=== PATIENT | male | born 1995 | race African-American/Black ===

== ENCOUNTER 2019-03-23 14:50 | Inpatient (IN) ==
[2019-03-23] MEDS ORDERED: SODIUM CHLORIDE 0.9% 1,000 ML IV STA ×2 (16:00→17:25)
[2019-03-23] MEDS ORDERED: INSULIN REGULAR 100 UNIT/ML IV ONE (16:00)
[2019-03-23 16:17] LABS: Basophils % 0.5 % (0.0-0.8); Hematocrit 47.3 VOL% (42.0-52.0); Hemoglobin 14.9 GM/DL (14.0-18.0); Immature Granulocytes % 0.3 %; Immature Granulocytes Absolute 0.01 #; Lymphocytes # 0.5 10*3/uL (1.4-4.0); Lymphocytes % 12.3 % (21.2-54.2); Mean Corpuscular HGB Conc 31.5 GM/DL (32-36); Mean Corpuscular Volume 81.8 FL (87-102); Mean Platelet Volume 11.7 FL (9.6-12.0); Neutrophils % 81.9 % (38.7-73.9); Platelet Count 178 T/CUMM (130-400); Red Blood Count 5.78 MC/CUMM (3.8-5.5); Red Cell Distribution Width 15.5 % (9.3-17.3)
[2019-03-23 16:30] LABS: Albumin 4.4 G/DL (3.4-5.0); Bilirubin,Total 0.4 MG/DL (0.2-1.0); Calcium 10.2 MG/DL (8.5-10.1); Osmolality,Calculated 294.5 MOS/KG (273-304); Thyroid Stimulating Hormone 1.69 uIU/ml (0.358-3.74); Total Protein 9.7 G/DL (6.4-8.3)
[2019-03-23] MEDS ORDERED: GLUCAGON 1 MG VIAL IM PRN (18:47)
[2019-03-23] MEDS ORDERED: SODIUM PHOSPHATE IV PRN (18:47)
[2019-03-23] MEDS ORDERED: MAGNESIUM SULF RIDER 4 GM in PREMIX 1 EACH IV PRN (18:47)
[2019-03-23] MEDS ORDERED: DEXTROSE 50% 25 GM/50 ML VIAL IV PRN ×3 (18:47)
[2019-03-23] MEDS ORDERED: SODIUM BICARB INJ 100 MEQ in STERILE WATER INJ 400 ML IV PRN (18:47)
[2019-03-23] MEDS ORDERED: SODIUM CHLORIDE 0.9% 1,000 ML IV ONE (18:47)
[2019-03-23] MEDS ORDERED: SODIUM CHLORIDE 0.9% IV PRN (18:47)
[2019-03-23] MEDS ORDERED: INSULIN REGULAR DRIP 100 ML IV SCH (19:00)
[2019-03-23 19:28] LABS: Allen Test Positive; Pt O2 Delivery Device Room Air
[2019-03-23 19:29] LABS: ABG Base Excess -15.3 MMOL/L (-2.5-2.5); ABG Oxygen Saturation 97.9 % (95-100); ABG PCO2 23.4 MM HG (35-48); ABG TCO2 9.4 MMOL/L (23-27)
[2019-03-23] MEDS: ENOXAPARIN 40 MG/0.4 ML SYRINGE SUBCUT SCH (19:50)
[2019-03-23] MEDS: SODIUM CHLORIDE 0.9% 1,000 ML IV SCH (21:17)
[2019-03-23 23:21] LABS: Apearance,Urine CLEAR (Clear); Bilirubin,Urine Negative (Negative); Blood, Urine Small mg/dL (Negative); Glucose,Urine (UA) >=500 mg/dL (Negative); Hyaline Casts,Urine 1 /LPF (0-3); Ketones,Urine 80 mg/dL (Negative); Mucus,Urine Occasional /LPF (Occasional); Nitrite,Urine Negative (Negative); Protein,Urine Negative; RBC,Urine <1 /HPF (0-4); Urine Color Straw (Yellow); Urine Specific Gravity 1.022 (1.001-1.035); Urine Urobilinogen < 2.0 EU/DL (0.2-1.0); WBC,Urine 1 /HPF (0-6)
[2019-03-23] MEDS ORDERED: SODIUM CHLORIDE 0.9% 1,000 ML IV SCH (23:48)
[2019-03-24] MEDS: SODIUM CHLORIDE 0.9% 1,000 ML IV SCH (00:52)
[2019-03-24 01:17] LABS: Calcium 8.1 MG/DL (8.5-10.1); Osmolality,Calculated 281.5 MOS/KG (273-304)
[2019-03-24] MEDS: POTASSIUM CHLORIDE RIDER 10 MEQ in PREMIX 1 EACH IV PRN (02:02)
[2019-03-24] MEDS ORDERED: DEXTROSE 5% NACL 0.9% 1,000 ML IV SCH (02:30)
[2019-03-24 03:46] LABS: Basophils % 0.9 % (0.0-0.8); Eosinophils % 1.2 % (0.00-10.9); Hematocrit 33.1 VOL% (42.0-52.0); Hemoglobin 10.4 GM/DL (14.0-18.0); Immature Granulocytes % 0.3 %; Immature Granulocytes Absolute 0.01 #; Lymphocytes # 1.3 10*3/uL (1.4-4.0); Lymphocytes % 38.8 % (21.2-54.2); Mean Corpuscular HGB Conc 31.4 GM/DL (32-36); Mean Corpuscular Volume 82.1 FL (87-102); Mean Platelet Volume 11.2 FL (9.6-12.0); Monocytes % 7.3 % (1.7-12.7); Neutrophils % 51.5 % (38.7-73.9); Platelet Count 137 T/CUMM (130-400); Red Blood Count 4.03 MC/CUMM (3.8-5.5); Red Cell Distribution Width 15.7 % (9.3-17.3); White Blood Count 3.4 T/CUMM (4-12)
[2019-03-24 04:05] LABS: Calcium 8.2 MG/DL (8.5-10.1); Osmolality,Calculated 285.3 MOS/KG (273-304)
[2019-03-24] MEDS ORDERED: SODIUM CHLOR 0.45% KCL 20 MEQ 20 MEQ/1,000 ML BAG IV SCH (05:00)
[2019-03-24] MEDS: MAGNESIUM SULF RIDER 2 GM in PREMIX 1 EACH IV PRN ×2 (05:50→13:05)
[2019-03-24 07:54] LABS: Calcium 8.3 MG/DL (8.5-10.1); Osmolality,Calculated 280.4 MOS/KG (273-304)
[2019-03-24] MEDS: SODIUM CHLORIDE 0.45% 1,000 ML IV SCH ×3 (08:00→18:37)
[2019-03-24] MEDS: POTASSIUM CHLORIDE 20 MEQ TABLET PO SCH ×3 (09:01→15:56)
[2019-03-24] MEDS ORDERED: INSULIN NPH 100 UNIT/ML SUBCUT ONE (10:40)
[2019-03-24] MEDS: INSULIN NPH 100 UNIT/ML SUBCUT SCH ×2 (10:41→15:56)
[2019-03-24] MEDS: INSULIN LISPRO 100 UNIT/ML SUBCUT SCH ×5 (10:58→22:59)
[2019-03-24] MEDS ORDERED: INSULIN LISPRO 100 UNIT/ML SUBCUT SCH (11:30)
[2019-03-24] MEDS: ENOXAPARIN 40 MG/0.4 ML SYRINGE SUBCUT SCH (18:36)
[2019-03-25] MEDS: SODIUM CHLORIDE 0.45% 1,000 ML IV SCH (01:37)
[2019-03-25] MEDS: INSULIN LISPRO 100 UNIT/ML SUBCUT SCH ×9 (02:36→20:51)
[2019-03-25 04:59] LABS: Basophils % 0.4 % (0.0-0.8); Eosinophils % 1.1 % (0.00-10.9); Hematocrit 33.4 VOL% (42.0-52.0); Hemoglobin 11.1 GM/DL (14.0-18.0); Immature Granulocytes % 0.4 %; Immature Granulocytes Absolute 0.01 #; Lymphocytes # 0.7 10*3/uL (1.4-4.0); Lymphocytes % 24.4 % (21.2-54.2); Mean Corpuscular HGB Conc 33.2 GM/DL (32-36); Mean Corpuscular Volume 78.4 FL (87-102); Monocytes % 8.6 % (1.7-12.7); Neutrophils % 65.1 % (38.7-73.9); Platelet Count 110 T/CUMM (130-400); Red Blood Count 4.26 MC/CUMM (3.8-5.5); Red Cell Distribution Width 15.7 % (9.3-17.3); White Blood Count 2.8 T/CUMM (4-12)
[2019-03-25 05:25] LABS: Calcium 8.5 MG/DL (8.5-10.1); Osmolality,Calculated 279.3 MOS/KG (273-304)
[2019-03-25] MEDS: POTASSIUM CHLORIDE RIDER 10 MEQ in PREMIX 1 EACH IV PRN ×2 (06:45→07:44)
[2019-03-25] MEDS: MAGNESIUM SULF RIDER 2 GM in PREMIX 1 EACH IV PRN (07:05)
[2019-03-25] MEDS: INSULIN NPH 100 UNIT/ML SUBCUT SCH ×2 (07:34→15:53)
[2019-03-25] MEDS ORDERED: MAGNESIUM SULF RIDER 2 GM in PREMIX 1 EACH IV ONE (08:31)
[2019-03-25] MEDS: POTASSIUM CHLORIDE 20 MEQ TABLET PO SCH ×4 (08:45→20:34)
[2019-03-25] MEDS ORDERED: INSULIN LISPRO 100 UNIT/ML SUBCUT SCH (12:00)
[2019-03-25] MEDS: ENOXAPARIN 40 MG/0.4 ML SYRINGE SUBCUT SCH (18:05)
[2019-03-26 05:34] LABS: Calcium 8.6 MG/DL (8.5-10.1); Osmolality,Calculated 277.7 MOS/KG (273-304)
[2019-03-26] MEDS ORDERED: LEVOTHYROXINE 200 MCG TABLET PO SCH (06:30)
[2019-03-26] MEDS: POTASSIUM CHLORIDE RIDER 10 MEQ in PREMIX 1 EACH IV PRN ×2 (09:25→10:33)
[2019-03-26] MEDS: INSULIN LISPRO 100 UNIT/ML SUBCUT SCH ×4 (09:26→11:39)
[2019-03-26] MEDS: INSULIN NPH 100 UNIT/ML SUBCUT SCH (09:26)
[2019-03-26] MEDS ORDERED: INSULIN NPH 100 UNIT/ML SUBCUT SCH ×2 (10:30→16:30)
[2019-03-26] MEDS ORDERED: INSULIN REGULAR 100 UNIT/ML SUBCUT SCH (11:30)
[2019-03-26 11:52] VITALS: BP 116/82
[2019-03-26] MEDS ORDERED: ENOXAPARIN 40 MG/0.4 ML SYRINGE SUBCUT SCH (21:00)
[2019-03-30 07:31] LABS: GAD65 Ab Assay, S 0.09 nmol/L (<= 0.02)
== END 2019-03-26 12:35 | disposition home or self-care (01) | DRG 639 ==
LOC: N.ED 14:50 → N.ICU 18:23 → SUATTDRO 18:23 → N.ICU 19:30 → N.4E 03-25 16:54
PROVIDERS: ADMIT Internal Medicine; ATTEND Family Medicine

== ENCOUNTER 2019-04-10 21:59 | Observation (INO) ==
[2019-04-10] MEDS ORDERED: ONDANSETRON 4 MG/2 ML VIAL IV ONE (22:43)
[2019-04-10] MEDS ORDERED: SODIUM CHLORIDE 0.9% 1,000 ML IV STA (22:43)
[2019-04-10 22:57] LABS: ABG Base Excess -24.3 MMOL/L (-2.5-2.5); ABG HCO3 8.6 MMOL/L (20-26); ABG Oxygen Saturation 97.8 % (95-100); ABG TCO2 4.3 MMOL/L (23-27); Allen Test Positive; Pt O2 Delivery Device Other
[2019-04-10 23:00] LABS: ABG PH 7.132 (7.35-7.45)
[2019-04-10 23:05] LABS: Alanine Aminotransferase 24 U/L (16-61); Albumin 4.7 G/DL (3.4-5.0); Alkaline Phosphatase 138 U/L (45-117); Aspartate Amino Transferase 12 U/L (0-37); Blood Urea Nitrogen 14 MG/DL (7-18); Calcium 11.1 MG/DL (8.5-10.1); Osmolality,Calculated 300.7 MOS/KG (273-304); Total Protein 10.9 G/DL (6.4-8.3)
[2019-04-10 23:11] LABS: Glucose 551 MG/DL (74-106)
[2019-04-10] MEDS ORDERED: INSULIN REGULAR 100 UNIT/ML IV STA (23:12)
[2019-04-10] MEDS ORDERED: INSULIN REGULAR DRIP 100 ML IV PRN (23:18)
[2019-04-10 23:20] LABS: Basophils % 0.3 % (0.0-0.8); Hematocrit 55.5 VOL% (42.0-52.0); Hemoglobin 16.8 GM/DL (14.0-18.0); Immature Granulocytes % 0.7 %; Immature Granulocytes Absolute 0.07 #; Lymphocytes # 0.6 10*3/uL (1.4-4.0); Lymphocytes % 6.6 % (21.2-54.2); Mean Corpuscular HGB Conc 30.3 GM/DL (32-36); Mean Corpuscular Volume 85.1 FL (87-102); Mean Platelet Volume 11.8 FL (9.6-12.0); Monocytes % 2.6 % (1.7-12.7); Neutrophils % 89.8 % (38.7-73.9); Platelet Count 254 T/CUMM (130-400); Red Blood Count 6.52 MC/CUMM (3.8-5.5); Red Cell Distribution Width 18.7 % (9.3-17.3); White Blood Count 9.8 T/CUMM (4-12)
[2019-04-10 23:35] LABS: Apearance,Urine CLEAR (Clear); Bilirubin,Urine Negative (Negative); Blood, Urine Moderate mg/dL (Negative); Glucose,Urine (UA) >=500 mg/dL (Negative); Hyaline Casts,Urine 13 /LPF (0-3); Ketones,Urine 80 mg/dL (Negative); Mucus,Urine Occasional /LPF (Occasional); Nitrite,Urine Negative (Negative); Protein,Urine >=500 MG/DL; RBC,Urine 1 /HPF (0-4); Urine Color Yellow (Yellow); Urine Specific Gravity 1.025 (1.001-1.035); Urine Urobilinogen < 2.0 EU/DL (0.2-1.0); WBC,Urine <1 /HPF (0-6)
[2019-04-11] MEDS ORDERED: ONDANSETRON 4 MG/2 ML VIAL IV PRN (01:13)
[2019-04-11] MEDS ORDERED: ACETAMINOPHEN 325 MG TABLET PO PRN (01:13)
[2019-04-11] MEDS: SODIUM CHLORIDE 0.45% 1,000 ML IV SCH ×2 (01:58→06:18)
[2019-04-11 03:52] LABS: Calcium 9.5 MG/DL (8.5-10.1); Osmolality,Calculated 298.8 MOS/KG (273-304)
[2019-04-11 05:03] LABS: Basophils % 0.2 % (0.0-0.8); Eosinophils % 0.1 % (0.00-10.9); Hematocrit 47.3 VOL% (42.0-52.0); Immature Granulocytes % 0.7 %; Immature Granulocytes Absolute 0.11 #; Lymphocytes # 1.4 10*3/uL (1.4-4.0); Lymphocytes % 9.1 % (21.2-54.2); Mean Corpuscular HGB Conc 30.9 GM/DL (32-36); Mean Corpuscular Volume 83.7 FL (87-102); Mean Platelet Volume 12.8 FL (9.6-12.0); Monocytes % 2.9 % (1.7-12.7); Red Blood Count 5.65 MC/CUMM (3.8-5.5); Red Cell Distribution Width 17.6 % (9.3-17.3)
[2019-04-11 05:11] LABS: Hemoglobin 14.6 GM/DL (14.0-18.0); Platelet Count 153 T/CUMM (130-400); White Blood Count 15.1 T/CUMM (4-12)
[2019-04-11 07:23] LABS: ABG PCO2 14.4 MM HG (35-48)
[2019-04-11] MEDS: ENOXAPARIN 40 MG/0.4 ML SYRINGE SUBCUT SCH (09:13)
[2019-04-11 10:14] LABS: Calcium 9.5 MG/DL (8.5-10.1); Osmolality,Calculated 282.8 MOS/KG (273-304)
[2019-04-11] MEDS ORDERED: GLUCAGON 1 MG VIAL IM PRN (10:39)
[2019-04-11] MEDS ORDERED: DEXTROSE 50% 25 GM/50 ML VIAL IV PRN (10:39)
[2019-04-11] MEDS: LACTATED RINGERS 1,000 ML IV SCH ×3 (10:56→22:21)
[2019-04-11] MEDS: INSULIN REGULAR 100 UNIT/ML SUBCUT SCH ×2 (11:17→18:48)
[2019-04-11] MEDS: INSULIN NPH 100 UNIT/ML SUBCUT SCH ×2 (11:17→16:55)
[2019-04-11] MEDS: POTASSIUM CHLORIDE 20 MEQ TABLET PO SCH ×3 (11:17→20:56)
[2019-04-11] MEDS: FAMOTIDINE 20 MG/2 ML VIAL IV SCH ×2 (11:17→22:23)
[2019-04-11] MEDS: LEVOTHYROXINE 200 MCG TABLET PO SCH (15:12)
[2019-04-11] MEDS ORDERED: POTASSIUM CHLORIDE 20 MEQ TABLET PO SCH (21:00)
[2019-04-12] MEDS: INSULIN REGULAR 100 UNIT/ML SUBCUT SCH ×4 (00:24→17:33)
[2019-04-12] MEDS: LACTATED RINGERS 1,000 ML IV SCH ×4 (03:04→23:33)
[2019-04-12 06:01] LABS: Calcium 8.8 MG/DL (8.5-10.1); Osmolality,Calculated 286.5 MOS/KG (273-304)
[2019-04-12] MEDS: LEVOTHYROXINE 200 MCG TABLET PO SCH (07:08)
[2019-04-12] MEDS ORDERED: MAGNESIUM SULF RIDER 2 GM in PREMIX 1 EACH IV PRN (07:14)
[2019-04-12] MEDS ORDERED: MAGNESIUM SULF RIDER 4 GM in PREMIX 1 EACH IV PRN (07:14)
[2019-04-12] MEDS: INSULIN NPH 100 UNIT/ML SUBCUT SCH ×3 (09:23→17:33)
[2019-04-12] MEDS: ENOXAPARIN 40 MG/0.4 ML SYRINGE SUBCUT SCH (09:23)
[2019-04-12] MEDS: FAMOTIDINE 20 MG/2 ML VIAL IV SCH ×2 (09:24→21:34)
[2019-04-12] MEDS ORDERED: INSULIN NPH 100 UNIT/ML SUBCUT SCH ×3 (10:30→18:28)
[2019-04-12] MEDS: GABAPENTIN 100 MG CAPSULE PO SCH (20:43)
[2019-04-13] MEDS: INSULIN REGULAR 100 UNIT/ML SUBCUT SCH ×6 (03:40→18:13)
[2019-04-13] MEDS: LACTATED RINGERS 1,000 ML IV SCH ×5 (03:42→22:42)
[2019-04-13 05:22] LABS: Calcium 8.4 MG/DL (8.5-10.1)
[2019-04-13] MEDS: LEVOTHYROXINE 200 MCG TABLET PO SCH (06:49)
[2019-04-13] MEDS ORDERED: POTASSIUM CHLORIDE INJ 50 MEQ in SODIUM CHLORIDE 0.9% 500 ML IV ONE (09:00)
[2019-04-13] MEDS: INSULIN NPH 100 UNIT/ML SUBCUT SCH (09:01)
[2019-04-13] MEDS: FAMOTIDINE 20 MG/2 ML VIAL IV SCH ×2 (09:02→22:05)
[2019-04-13] MEDS: ENOXAPARIN 40 MG/0.4 ML SYRINGE SUBCUT SCH (09:02)
[2019-04-13] MEDS: GABAPENTIN 100 MG CAPSULE PO SCH ×2 (09:02→20:08)
[2019-04-14] MEDS: INSULIN REGULAR 100 UNIT/ML SUBCUT SCH ×3 (02:55→08:13)
[2019-04-14 05:48] LABS: Calcium 8.6 MG/DL (8.5-10.1); Osmolality,Calculated 282.1 MOS/KG (273-304)
[2019-04-14] MEDS: LACTATED RINGERS 1,000 ML IV SCH (05:55)
[2019-04-14] MEDS: LEVOTHYROXINE 200 MCG TABLET PO SCH (06:03)
[2019-04-14] MEDS: INSULIN NPH 100 UNIT/ML SUBCUT SCH (08:11)
[2019-04-14] MEDS: ENOXAPARIN 40 MG/0.4 ML SYRINGE SUBCUT SCH (08:14)
[2019-04-14] MEDS: FAMOTIDINE 20 MG/2 ML VIAL IV SCH (08:17)
[2019-04-14] MEDS: GABAPENTIN 100 MG CAPSULE PO SCH (08:20)
[2019-04-14 08:51] VITALS: BP 116/75
[2019-04-14] MEDS ORDERED: POTASSIUM CHLORIDE 20 MEQ TABLET PO ONE (09:30)
== END 2019-04-14 11:03 | disposition home or self-care (01) ==
LOC: N.ED 21:59 → N.EDINP 21:59 → SUATTDRO 04-11 01:13 → N.CC 04-11 08:06 → N.2E 04-11 11:53
PROVIDERS: ADMIT Internal Medicine; ATTEND Internal Medicine

== ENCOUNTER 2019-04-20 12:36 | Inpatient (IN) ==
[2019-04-20] MEDS ORDERED: ONDANSETRON 4 MG/2 ML VIAL IV STA (13:36)
[2019-04-20] MEDS ORDERED: SODIUM CHLORIDE 0.9% 1,000 ML IV STA ×2 (13:36→14:50)
[2019-04-20] MEDS ORDERED: INSULIN REGULAR 100 UNIT/ML IV ONE ×2 (13:52→15:48)
[2019-04-20 14:20] LABS: Basophils # 0.1 10*3/uL (0.0-0.2); Basophils % 0.3 % (0.0-0.8); Hematocrit 47.5 VOL% (42.0-52.0); Hemoglobin 14.5 GM/DL (14.0-18.0); Immature Granulocytes % 1.8 %; Immature Granulocytes Absolute 0.33 #; Lymphocytes % 5.5 % (21.2-54.2); Mean Corpuscular HGB Conc 30.5 GM/DL (32-36); Mean Corpuscular Volume 86.5 FL (87-102); Mean Platelet Volume 10.8 FL (9.6-12.0); Monocytes % 5.3 % (1.7-12.7); Neutrophils % 87.1 % (38.7-73.9); Platelet Count 407 T/CUMM (130-400); Red Blood Count 5.49 MC/CUMM (3.8-5.5); Red Cell Distribution Width 17.9 % (9.3-17.3); White Blood Count 18.6 T/CUMM (4-12)
[2019-04-20 14:21] LABS: Albumin 4.1 G/DL (3.4-5.0); Bilirubin,Total 0.4 MG/DL (0.2-1.0); Calcium 9.8 MG/DL (8.5-10.1); Osmolality,Calculated 295.8 MOS/KG (273-304); Total Protein 9.8 G/DL (6.4-8.3)
[2019-04-20] MEDS ORDERED: MAGNESIUM SULF RIDER 4 GM in PREMIX 1 EACH IV PRN (15:48)
[2019-04-20] MEDS ORDERED: SODIUM CHLORIDE 0.9% IV PRN (15:48)
[2019-04-20] MEDS ORDERED: SODIUM CHLORIDE 0.9% 1,000 ML IV ONE (15:48)
[2019-04-20] MEDS ORDERED: PANTOPRAZOLE 40 MG VIAL IV SCH (15:48)
[2019-04-20] MEDS ORDERED: ONDANSETRON 4 MG/2 ML VIAL IV PRN (15:48)
[2019-04-20] MEDS ORDERED: SODIUM BICARB INJ 100 MEQ in STERILE WATER INJ 400 ML IV PRN (15:48)
[2019-04-20] MEDS ORDERED: MAGNESIUM SULF RIDER 2 GM in PREMIX 1 EACH IV PRN (15:48)
[2019-04-20] MEDS ORDERED: SODIUM PHOSPHATE IV PRN (15:48)
[2019-04-20] MEDS ORDERED: DEXTROSE 50% 25 GM/50 ML VIAL IV PRN ×2 (15:48)
[2019-04-20 16:16] LABS: Pt O2 Delivery Device Room Air
[2019-04-20 16:23] LABS: ABG Base Excess -28.3 MMOL/L (-2.5-2.5); ABG HCO3 1.3 MMOL/L (20-26); ABG Oxygen Saturation 98.7 % (95-100); ABG PO2 187.6 MM HG (80-95); ABG TCO2 1.5 MMOL/L (23-27)
[2019-04-20 16:32] LABS: ABG PH 6.977 (7.35-7.45)
[2019-04-20 16:33] LABS: ABG PCO2 5.8 MM HG (35-48)
[2019-04-20] MEDS ORDERED: POTASSIUM CHLORIDE IV PRN (17:06)
[2019-04-20] MEDS ORDERED: STERILE WATER IV PRN (17:06)
[2019-04-20] MEDS ORDERED: SODIUM BICARB IV PRN (17:06)
[2019-04-20 17:12] LABS: Calcium 8.7 MG/DL (8.5-10.1); Osmolality,Calculated 292.2 MOS/KG (273-304)
[2019-04-20 17:13] LABS: Basophils # 0.1 10*3/uL (0.0-0.2); Basophils % 0.4 % (0.0-0.8); Hematocrit 43.7 VOL% (42.0-52.0); Hemoglobin 13.2 GM/DL (14.0-18.0); Immature Granulocytes % 1.9 %; Lymphocytes # 1.3 10*3/uL (1.4-4.0); Mean Corpuscular HGB Conc 30.2 GM/DL (32-36); Mean Corpuscular Volume 87.6 FL (87-102); Mean Platelet Volume 10.8 FL (9.6-12.0); Monocytes % 7.4 % (1.7-12.7); Neutrophils % 84.3 % (38.7-73.9); Platelet Count 365 T/CUMM (130-400); Red Blood Count 4.99 MC/CUMM (3.8-5.5); Red Cell Distribution Width 17.8 % (9.3-17.3); White Blood Count 21.2 T/CUMM (4-12)
[2019-04-20] MEDS: INSULIN REGULAR DRIP 100 ML IV SCH (17:17)
[2019-04-20 17:19] LABS: Thyroid Stimulating Hormone 0.616 uIU/ml (0.358-3.74)
[2019-04-20 17:26] LABS: Lymphocytes 5 % (20-55); Platelet Estimate Adequate; Segmented Neutrophils 90 % (50-85); Total Cells Counted 100
[2019-04-20] MEDS: ENOXAPARIN 40 MG/0.4 ML SYRINGE SUBCUT SCH (17:34)
[2019-04-20] MEDS: SODIUM CHLORIDE 0.9% 1,000 ML IV SCH ×2 (18:34→19:45)
[2019-04-20 18:45] LABS: Pt O2 Delivery Device Room Air
[2019-04-20 18:47] LABS: ABG Base Excess -29.2 MMOL/L (-2.5-2.5); ABG HCO3 1.6 MMOL/L (20-26); ABG Oxygen Saturation 98.4 % (95-100); ABG PO2 163.3 MM HG (80-95); ABG TCO2 1.8 MMOL/L (23-27)
[2019-04-20 18:50] LABS: ABG PH 6.927 (7.35-7.45)
[2019-04-20 18:51] LABS: ABG PCO2 7.7 MM HG (35-48)
[2019-04-20] MEDS ORDERED: SODIUM CHLORIDE 0.9% 1,000 ML IV SCH (19:48)
[2019-04-20 19:54] LABS: Apearance,Urine CLEAR (Clear); Bacteria,Urine Occasional /HPF (Few); Bilirubin,Urine Negative (Negative); Blood, Urine Moderate mg/dL (Negative); Glucose,Urine (UA) >=500 mg/dL (Negative); Ketones,Urine 80 mg/dL (Negative); Mucus,Urine Occasional /LPF (Occasional); Nitrite,Urine Negative (Negative); Protein,Urine Negative; RBC,Urine 1 /HPF (0-4); Urine Color Straw (Yellow); Urine Specific Gravity 1.011 (1.001-1.035); Urine Urobilinogen < 2.0 EU/DL (0.2-1.0); WBC,Urine <1 /HPF (0-6)
[2019-04-20 20:30] LABS: Calcium 7.4 MG/DL (8.5-10.1); Osmolality,Calculated 289.8 MOS/KG (273-304)
[2019-04-20 20:53] LABS: ABG Base Excess -25.7 MMOL/L (-2.5-2.5); ABG HCO3 2.6 MMOL/L (20-26); ABG Oxygen Saturation 98.5 % (95-100); ABG PO2 142.6 MM HG (80-95); ABG TCO2 2.9 MMOL/L (23-27); Allen Test Positive; Pt O2 Delivery Device Room Air
[2019-04-20 20:57] LABS: ABG PCO2 9.7 MM HG (35-48); ABG PH 7.051 (7.35-7.45)
[2019-04-20 21:38] LABS: Barbiturates Screen,Urine Negative (Negative); Benzodiazepines Screen,Urine Negative (Negative); Cannabinoid Screen,Urine Negative (Negative); Opiate Screen,Urine Negative (Negative); Phencyclidine Screen,Urine Negative (Negative)
[2019-04-20] MEDS: GABAPENTIN 100 MG CAPSULE PO SCH (22:17)
[2019-04-20 22:55] LABS: ABG Base Excess -26.8 MMOL/L (-2.5-2.5); ABG HCO3 6.6 MMOL/L (20-26); ABG Oxygen Saturation 98.6 % (95-100); Allen Test Positive; Pt O2 Delivery Device Room Air
[2019-04-20 22:59] LABS: ABG PH 7.067 (7.35-7.45)
[2019-04-20 23:07] LABS: Calcium 7.7 MG/DL (8.5-10.1); Osmolality,Calculated 289.8 MOS/KG (273-304)
[2019-04-21 01:13] LABS: ABG Base Excess -25.3 MMOL/L (-2.5-2.5); ABG HCO3 7.3 MMOL/L (20-26); ABG Oxygen Saturation 98.8 % (95-100); ABG TCO2 3.5 MMOL/L (23-27); Allen Test Positive; Pt O2 Delivery Device Room Air
[2019-04-21 01:15] LABS: ABG PH 7.113 (7.35-7.45)
[2019-04-21 01:16] LABS: ABG PCO2 11.8 MM HG (35-48)
[2019-04-21] MEDS ORDERED: DEXTROSE 5% NACL 0.9% 1,000 ML IV SCH (03:00)
[2019-04-21 03:58] LABS: Basophils % 0.2 % (0.0-0.8); Eosinophils % 0.2 % (0.00-10.9); Hematocrit 35.8 VOL% (42.0-52.0); Hemoglobin 10.9 GM/DL (14.0-18.0); Immature Granulocytes % 1.7 %; Immature Granulocytes Absolute 0.21 #; Lymphocytes # 1.6 10*3/uL (1.4-4.0); Lymphocytes % 12.3 % (21.2-54.2); Mean Corpuscular HGB Conc 30.4 GM/DL (32-36); Mean Corpuscular Volume 85.6 FL (87-102); Mean Platelet Volume 11.5 FL (9.6-12.0); Monocytes % 7.9 % (1.7-12.7); Neutrophils % 77.7 % (38.7-73.9); Platelet Count 194 T/CUMM (130-400); Red Blood Count 4.18 MC/CUMM (3.8-5.5); Red Cell Distribution Width 17.8 % (9.3-17.3); White Blood Count 12.6 T/CUMM (4-12)
[2019-04-21 04:45] LABS: Risk Ratio 6.93
[2019-04-21 04:47] LABS: Osmolality,Calculated 278.7 MOS/KG (273-304)
[2019-04-21] MEDS ORDERED: SODIUM CHLOR 0.45% KCL 20 MEQ 20 MEQ/1,000 ML BAG IV SCH (05:00)
[2019-04-21] MEDS ORDERED: DEXT 5% NACL 0.45% KCL 20 MEQ 20 MEQ/1,000 ML BAG IV SCH (06:00)
[2019-04-21] MEDS: LEVOTHYROXINE 200 MCG TABLET PO SCH (06:24)
[2019-04-21] MEDS ORDERED: SODIUM CHLORIDE 0.45% 1,000 ML IV SCH (07:48)
[2019-04-21] MEDS ORDERED: POTASSIUM CHLORIDE INJ 10 MEQ in DEXTROSE 5% LACTATED RINGERS 1,000 ML IV SCH (08:00)
[2019-04-21] MEDS: INSULIN NPH 100 UNIT/ML SUBCUT SCH (09:09)
[2019-04-21] MEDS: PANTOPRAZOLE 40 MG TABLET PO SCH (09:10)
[2019-04-21] MEDS: GABAPENTIN 100 MG CAPSULE PO SCH ×2 (09:10→22:11)
[2019-04-21 09:53] LABS: Calcium 7.3 MG/DL (8.5-10.1); Osmolality,Calculated 279.4 MOS/KG (273-304)
[2019-04-21] MEDS: POTASSIUM CHLORIDE RIDER 10 MEQ in PREMIX 1 EACH IV PRN ×4 (10:41→13:01)
[2019-04-21] MEDS: POTASSIUM CHLORIDE INJ 10 MEQ in LACTATED RINGERS 1,000 ML IV SCH ×2 (13:15→20:14)
[2019-04-21] MEDS: POTASSIUM CHLORIDE 20 MEQ TABLET PO SCH ×3 (13:15→22:11)
[2019-04-21] MEDS: INSULIN REGULAR DRIP 100 ML IV SCH (13:49)
[2019-04-21] MEDS ORDERED: INSULIN NPH 100 UNIT/ML SUBCUT SCH (16:30)
[2019-04-21] MEDS: ENOXAPARIN 40 MG/0.4 ML SYRINGE SUBCUT SCH (17:06)
[2019-04-21 23:35] LABS: Calcium 8.2 MG/DL (8.5-10.1); Osmolality,Calculated 272.5 MOS/KG (273-304)
[2019-04-22] MEDS: POTASSIUM CHLORIDE RIDER 10 MEQ in PREMIX 1 EACH IV PRN ×4 (00:21→03:15)
[2019-04-22] MEDS: INSULIN REGULAR 100 UNIT/ML SUBCUT SCH ×6 (04:42→21:07)
[2019-04-22] MEDS: POTASSIUM CHLORIDE INJ 10 MEQ in LACTATED RINGERS 1,000 ML IV SCH ×2 (04:42→06:34)
[2019-04-22 05:10] LABS: Eosinophils % 0.3 % (0.00-10.9); Hematocrit 29.2 VOL% (42.0-52.0); Immature Granulocytes % 0.3 %; Immature Granulocytes Absolute 0.01 #; Lymphocytes # 0.7 10*3/uL (1.4-4.0); Lymphocytes % 20.3 % (21.2-54.2); Mean Corpuscular HGB Conc 34.2 GM/DL (32-36); Mean Corpuscular Volume 78.5 FL (87-102); Mean Platelet Volume 10.4 FL (9.6-12.0); Monocytes % 12.6 % (1.7-12.7); Neutrophils % 66.5 % (38.7-73.9); Platelet Count 165 T/CUMM (130-400); Red Blood Count 3.72 MC/CUMM (3.8-5.5); White Blood Count 3.6 T/CUMM (4-12)
[2019-04-22 05:43] LABS: Calcium 8.3 MG/DL (8.5-10.1); Osmolality,Calculated 275.3 MOS/KG (273-304)
[2019-04-22] MEDS: LEVOTHYROXINE 200 MCG TABLET PO SCH (06:35)
[2019-04-22] MEDS: GABAPENTIN 100 MG CAPSULE PO SCH ×2 (08:39→21:08)
[2019-04-22] MEDS: POTASSIUM CHLORIDE 20 MEQ TABLET PO SCH ×3 (08:40→17:05)
[2019-04-22] MEDS: PANTOPRAZOLE 40 MG TABLET PO SCH (08:40)
[2019-04-22] MEDS: INSULIN NPH 100 UNIT/ML SUBCUT SCH ×2 (08:41→17:05)
[2019-04-22] MEDS: ENOXAPARIN 40 MG/0.4 ML SYRINGE SUBCUT SCH (17:05)
[2019-04-23 05:37] LABS: Calcium 8.5 MG/DL (8.5-10.1); Osmolality,Calculated 279.4 MOS/KG (273-304)
[2019-04-23] MEDS: LEVOTHYROXINE 200 MCG TABLET PO SCH (06:04)
[2019-04-23] MEDS: PANTOPRAZOLE 40 MG TABLET PO SCH (08:49)
[2019-04-23] MEDS: GABAPENTIN 100 MG CAPSULE PO SCH (08:49)
[2019-04-23] MEDS: INSULIN REGULAR 100 UNIT/ML SUBCUT SCH ×3 (08:49→17:14)
[2019-04-23] MEDS: INSULIN NPH 100 UNIT/ML SUBCUT SCH ×2 (08:49→17:15)
[2019-04-23 12:50] VITALS: BP 107/79
[2019-04-23] MEDS: ENOXAPARIN 40 MG/0.4 ML SYRINGE SUBCUT SCH (16:31)
== END 2019-04-23 18:40 | disposition home or self-care (01) | DRG 638 ==
LOC: N.ED 12:36 → N.EDINP 14:20 → SUATTDRO 14:46 → N.ICU 15:50 → N.4E 04-22 17:43
PROVIDERS: ADMIT Internal Medicine; ATTEND Internal Medicine